=== PATIENT | male | born 1985 | race Caucasian/White ===

== ENCOUNTER 2017-01-14 02:48 | Inpatient (IN) | payer MEDICAID, OTHER ==
[2017-01-14] VITALS (7 sets, daily range): BP systolic 111–127; BP diastolic 67–80; PULSE 73–104; RESP 17–18; TEMP 97.3–100.9; O2SAT 94–99
[~2017-01-14] VITALS: Ht 175.3 cm; Wt 64.0 kg
[~2017-01-14 02:48] MED LIST: BACT800T5 PO; CLIN1CAP6 PO
[2017-01-14] MEDS ORDERED: ceFAZolin 2 GM PREMIX 50 ML IV ONE (03:00)
[2017-01-14 03:17] LABS: AUTOMATED NEUTROPHIL # 11.3 TH/MM3 (1.8-7.7); BASOPHIL # 0.1 TH/MM3 (0-0.2); BASOPHIL % 0.5 % (0.0-2.0); EOSINOPHIL # 0.3 TH/MM3 (0-0.4); EOSINOPHIL % 1.8 % (0.0-4.0); HEMATOCRIT 40.1 % (39.0-51.0); HEMO FLAGS DIFF FINAL; LYMPH % 11.4 % (9.0-44.0); LYMPHOCYTE # 1.7 TH/MM3 (1.0-4.8); MEAN CELL VOLUME 92.5 FL (80.0-100.0); MEAN CORPUSCULAR HGB CONC 34.6 % (32.0-36.0); MONO % 9.9 % (0.0-8.0); NEUT % 76.4 % (16.0-70.0); PLATELET COUNT 186 TH/MM3 (150-450); RED BLOOD COUNT 4.33 MIL/MM3 (4.50-5.90); RED CELL DISTRIBUTION WIDTH 13.2 % (11.6-17.2); WHITE BLOOD COUNT 14.9 TH/MM3 (4.0-11.0)
--- NOTE | 2017-01-14 03:20 | PD ---
HPI Chief Complaint: Injury Time Seen by Provider: 03:10 Travel History International Travel<30 days: No Contact w/Intl Traveler<30days: No Traveled to known affect area: No History of Present Illness HPI 31-year-old myjdv-eirc-mkuoewxv white male presents to emergency department for evaluation of a pneumatic paint injection injury to the tip of the left index finger. This occurred sometime around 6:00 last evening. He states that he felt he had squeezed the pain out of the tip of this finger. He states that he washed the finger with peroxide. He woke up this morning sometime after 2 AM with severe pain in the left index finger along with swelling. He notes some decreased sensation in the distal phalanx. He has not had a tetanus shot over 5 years. He last ate around 6:00 last evening. No other injuries. [facility] Past Medical History Narrative Medical History of substance abuse, seizures (patient has not had a seizure since stopping drugs), right knee MRSA, scoliosis, colon polyps Arthritis: Yes (IN HANDS FROM OLD FRACTURE) Cardiovascular Problems: No Diabetes: No Diminished Hearing: No Gastrointestinal Disorders: Yes (POLYPS) GERD: Yes Headaches: Yes Implanted Vascular Access Dvce: No Musculoskeletal: Yes (SCOLIOSIS) Neurologic: Yes Migraines: Yes Seizures: Yes Ulcer: Yes Tetanus Vaccination: > 5 Years Past Surgical History Narrative Surgical Endoscopy with removal of colon polyp, right knee MRSA Neurologic Surgery: No Other Surgery: Yes (ENDOSCOPY WITH BIOPSY) Social History Alcohol Use: No Tobacco Use: Yes (1 PPD FOR 5 YEARS) Substance Use: No Allergies-Medications (Allergen,Severity, Reaction): Coded Allergies: No Known Allergies (Verified , 01/14/17) Reported Meds & Prescriptions Reported Meds & Active Scripts Active No Active Prescriptions or Reported Medications Review of Systems Except as stated in HPI: all other systems reviewed are Neg General / Constitutional: No: Fever, Chills Eyes: No: Diploplia, Blurred Vision HENT: No: Sore Throat, Neck Pain Cardiovascular: No: Chest Pain or Discomfort, Palpitations Respiratory: No: Cough, Shortness of Breath Gastrointestinal: No: Nausea, Vomiting Genitourinary: No: Urgency, Hematuria Musculoskeletal: Positive: Arthralgias, Limited ROM, Cramping, Edema, Pain, No : Myalgias Skin: No Rash, No Itching Neurologic: No: Weakness, Dizziness Psychiatric: No: Anxiety, Depression Endocrine: No: Heat Intolerance, Cold Intolerance Physical Exam Narrative GENERAL: Well-developed, well-nourished in no apparent distress. Nontoxic appearing. HEAD: Normocephalic, atraumatic. EYES: Pupils equal round and reactive. Extraocular motions intact. No scleral icterus. No injection or drainage. ENT: Nose clear. Throat without erythema, tonsillar hypertrophy or exudate. Uvula midline. Airway patent. NECK: Trachea midline. Supple, nontender, moves head freely. No central bony tenderness or spasm. CARDIOVASCULAR: Regular rate and rhythm without murmurs, gallops, or rubs. RESPIRATORY: Clear to auscultation. Breath sounds equal bilaterally. No wheezes , rales, or rhonchi. GASTROINTESTINAL: Abdomen soft, non-tender, nondistended. No hepato-splenomegaly , or palpable masses. No guarding. EXTREMITIES: No clubbing, cyanosis. Examination of the right hand reveals swelling of the left index finger. He has a injection site at the distal volar pad. He has decreased gross sensation to the distal phalanx. He has full extension but slightly limited flexion due to pain. He has pain on the distal phalanx down into the volar palm. Patient has intact Refill. No warmth. Minimal erythema. BACK: Nontender without deformity. No flank tenderness. NEUROLOGICAL: Awake, alert and oriented x 3 .Cranial nerves grossly intact. Motor and sensory grossly within normal limits. Normal speech. Data Data Last Documented VS Vital Signs Date Time Temp Pulse Resp B/P Pulse Ox O2 Delivery O2 Flow Rate FiO2 01/14/17 02:50 98.1 104 18 127/80 98 Orders Complete Blood Count With Diff (01/14/17 02:59) Basic Metabolic Panel (Bmp) (01/14/17 02:59) Prothrombin Time / Inr (Pt) (01/14/17 02:59) Act Partial Throm Time (Ptt) (01/14/17 02:59) Cefazolin 2 Gm Premix (Ancef 2 Gm Premix (01/14/17 03:00) Hand, Complete ([id number]) (01/14/17 02:59) Tetanus/Diphtheria Tox Adult (Tetanus/Di (01/14/17 03:45) Labs Laboratory Tests Test 01/14/17 03:05 White Blood Count 14.9 TH/MM3 Red Blood Count 4.33 MIL/MM3 Hemoglobin 13.8 GM/DL Hematocrit 40.1 % Mean Corpuscular Volume 92.5 FL Mean Corpuscular Hemoglobin 32.0 PG Mean Corpuscular Hemoglobin 34.6 % Concent Red Cell Distribution Width 13.2 % Platelet Count 186 TH/MM3 Mean Platelet Volume 9.3 FL Neutrophils (%) (Auto) 76.4 % Lymphocytes (%) (Auto) 11.4 % Monocytes (%) (Auto) 9.9 % Eosinophils (%) (Auto) 1.8 % Basophils (%) (Auto) 0.5 % Neutrophils # (Auto) 11.3 TH/MM3 Lymphocytes # (Auto) 1.7 TH/MM3 Monocytes # (Auto) 1.5 TH/MM3 Eosinophils # (Auto) 0.3 TH/MM3 Basophils # (Auto) 0.1 TH/MM3 CBC Comment DIFF FINAL Differential Comment Prothrombin Time 11.6 SEC Prothromb Time International 1.0 RATIO Ratio Activated Partial 29.6 SEC Thromboplast Time Sodium Level 140 MEQ/L Potassium Level 4.1 MEQ/L Chloride Level 105 MEQ/L Carbon Dioxide Level 27.1 MEQ/L Anion Gap 8 MEQ/L Blood Urea Nitrogen 21 MG/DL Creatinine 1.19 MG/DL Estimat Glomerular Filtration 70 ML/MIN Rate Random Glucose 110 MG/DL Calcium Level 8.8 MG/DL [facility] Medical Decision Making Medical Screen Exam Complete: Yes Emergency Medical Condition: Yes Medical Record Reviewed: Yes Interpretation(s) Last 24 hours Impressions Hand X-Ray 01/14/17 0259 Signed Impressions: Service Date/Time: Saturday, January 14, 2017 03:20 - CONCLUSION: Radiopaque density in the volar tissues overlying the distal phalanx of the second ray characteristic of the reported history of a soft tissue pressure injection. Antwon Marshall MD CBC & BMP Diagram 01/14/17 03:05 Differential Diagnosis Differential diagnosis: Flexor synovitis, cellulitis, abscess, pneumatic paint injection injury Narrative Course The patient is made aware of the significant injury he has sustained. Dr. Raymond the hand surgeon was called immediately. He is coming in directly to evaluate the patient and taken to the operating room. IV access is obtained. Routine laboratory sent to the lab. X-ray of the hand. 2 g Ancef IV, tetanus immunization. Diagnosis Primary Impression: pneumatic paint injury left index finger Admitting Information Admitting Physician Requests: Admit Scripts No Active Prescriptions or Reported Meds Condition: Frank López Jan 14, 2017 03:20
[2017-01-14 03:25] LABS: APTT (PATIENT) 29.6 SEC (24.3-30.1); PROTHROMBIN TIME - PATIENT 11.6 SEC (9.8-11.6)
--- NOTE | 2017-01-14 03:29 | PD ---
Data Data Last Documented VS Vital Signs Date Time Temp Pulse Resp B/P Pulse Ox O2 Delivery O2 Flow Rate FiO2 01/14/17 02:50 98.1 104 18 127/80 98 Orders Complete Blood Count With Diff (01/14/17 02:59) Basic Metabolic Panel (Bmp) (01/14/17 02:59) Prothrombin Time / Inr (Pt) (01/14/17 02:59) Act Partial Throm Time (Ptt) (01/14/17 02:59) Cefazolin 2 Gm Premix (Ancef 2 Gm Premix (01/14/17 03:00) Hand, Complete ([id number]) (01/14/17 02:59) Labs Laboratory Tests Test 01/14/17 03:05 White Blood Count 14.9 TH/MM3 Red Blood Count 4.33 MIL/MM3 Hemoglobin 13.8 GM/DL Hematocrit 40.1 % Mean Corpuscular Volume 92.5 FL Mean Corpuscular Hemoglobin 32.0 PG Mean Corpuscular Hemoglobin 34.6 % Concent Red Cell Distribution Width 13.2 % Platelet Count 186 TH/MM3 Mean Platelet Volume 9.3 FL Neutrophils (%) (Auto) 76.4 % Lymphocytes (%) (Auto) 11.4 % Monocytes (%) (Auto) 9.9 % Eosinophils (%) (Auto) 1.8 % Basophils (%) (Auto) 0.5 % Neutrophils # (Auto) 11.3 TH/MM3 Lymphocytes # (Auto) 1.7 TH/MM3 Monocytes # (Auto) 1.5 TH/MM3 Eosinophils # (Auto) 0.3 TH/MM3 Basophils # (Auto) 0.1 TH/MM3 CBC Comment DIFF FINAL Differential Comment Prothrombin Time 11.6 SEC Prothromb Time International 1.0 RATIO Ratio Activated Partial 29.6 SEC Thromboplast Time MDM Supervised Visit with SANJANA: Yes Narrative Course Patient seen and examined by me in addition to Keven Crook PAC. Patient has fairly swollen first digital left hand. This injury was from a high-pressure injection of paint. Pinpoint wound. Concern is for necrotic substance along the fascia. Hand surgery will consult and recommendations made for OR and debridement. Diagnosis Primary Impression: pneumatic paint injury left index finger Scripts No Active Prescriptions or Reported Meds Condition: Stable Gurwinder Elizondo MD Jan 14, 2017 03:29
[2017-01-14 03:30] LABS: BICARBONATE 27.1 MEQ/L (21.0-32.0); POTASSIUM 4.1 MEQ/L (3.5-5.1)
--- NOTE | 2017-01-14 03:42 | RADRPT ---
EXAM DATE/TIME: 01/14/2017 03:20 [place] COMPARISON: No previous studies available for comparison. INDICATIONS : Pressure injected paint to the distal aspect of the second digit. MEDICAL HISTORY : None. SURGICAL HISTORY : None. ENCOUNTER: Initial ACUITY: 1 day PAIN SCORE: 10/10 LOCATION: Left finger FINDINGS: Three view examination of the left hand demonstrates radiopaque debris in the volar soft tissues over lying the distal phalanx of the pointer finger characteristic of a reported history of pressure injec tion of pain. Osseous structures are otherwise intact. CONCLUSION: Radiopaque density in the volar tissues overlying the distal phalanx of the second ray character istic of the reported history of a soft tissue pressure injection. Antwon Marshall MD on January 14, 2017 at 3:37 Board Certified Radiologist. This report was verified electronically.
[2017-01-14] MEDS ORDERED: TETANUS/DIPHTHERIA TOXOID ADULT 0.5 ML VIAL IM ONE (03:45)
[2017-01-14] MEDS ORDERED: MORPHINE SULFATE 8 MG/ML INJ IV PUSH ONE (04:45)
[2017-01-14] MEDS ORDERED: ONDANSETRON HCL 4 MG/2 ML VIAL IV PUSH ONE ×2 (04:45→09:57)
[2017-01-14] MEDS ORDERED: BUPIVACAINE HCL PF 0.5% 30 ML VIAL ONE (06:01)
[2017-01-14] MEDS ORDERED: LIDOCAINE HCL 2% 50 ML VIAL ONE (06:02)
[2017-01-14] MEDS ORDERED: ACETAMINOPHEN/HYDROcodone 325 MG/5 MG TAB PO PRN (06:15)
[2017-01-14] MEDS ORDERED: ONDANSETRON HCL 4 MG/2 ML VIAL IVP PRN (06:15)
[2017-01-14] MEDS ORDERED: SODIUM CHLORIDE 0.9% FLUSH 5 ML FLUSH FLUSH PRN (06:15)
[2017-01-14] MEDS ORDERED: ACETAMINOPHEN 325 MG TAB PO PRN (06:15)
[2017-01-14] MEDS ORDERED: BISACODYL 10 MG SUPP PR PRN (06:15)
--- NOTE | 2017-01-14 06:24 | MB ---
cc: KACY BENITO III, M.D. DATE OF CONSULTATION 01/14/2017 HISTORY The patient is a 31-year-old male who came into the emergency room two hours ago after being seen for a high pressure injection injury of Latex paint into the left index fingertip. This happened approximately 12 hours at home. He said he awoke at 2:30 this morning and his fingers was throbbing and painful and swollen, came to emergency room. He thought he had squeezed all of the pain out of his fingertips. He says he cannot even feel the tip of the left index finger. The last he ate was at 6 o'clock last night. PAST MEDICAL HISTORY 1. Seizure disorder. 2. The patient has a history of substance abuse but stopped 10 years ago. 3. Had right knee MRSA. 4. Scoliosis. 5. Colon polyps. 6. Arthritis in his hands from an old fracture. PAST SURGICAL HISTORY Right knee surgery for MRSA, infectious. SOCIAL HISTORY He smokes one-pack a day for five years. ALLERGIES No known drug allergies. MEDICATIONS No medications. REVIEW OF SYSTEMS Patient is not complaining of any night sweats, fevers or chills. He does not complain of any sore throat or neck pain. He does not complain of any chest pain or palpitations or discomfort. He does not complain of any cough, wheezing or shortness of breath. He is not complaining of any nausea, vomiting or diarrhea. He id not complaining of any urgency, burning, frequency or burning with urination. He is not complaining of any myalgias. He is complaining of any skin rashes or itching. He is not complaining of any weakness or dizziness. He is not complaining of any anxiety, depression or suicidal ideations. He is not complaining of any night sweats, fevers or chills. IMAGING STUDIES X-ray examination of the left index finger was performed and reviewed and this does not reveal any fractures, foreign bodies or dislocations but reveals radiopaque density in the volar tissues overlying the distal phalanx of the second ray with characteristics of the reported history and a soft tissue pressure injection. FAMILY HISTORY Noncontributory to this injury and hospitalization. PHYSICAL EXAMINATION GENERAL: He is well-developed, well-nourished, in no apparent distress. VITAL SIGNS: Temperature is 98.1, heart rate 73, respiratory rate 20, blood pressure 117/71. EXAMINATION OF THE LEFT UPPER EXTREMITY: Full active range of motion throughout with the exception of the left index finger which is edematous and tense at the tip with decreased capillary refill in the tip of the fingers. There is a small point of injury. The finger is swollen to the PIP joint and down to the MP joint as well. His hand and the proximal finger are soft. There is no erythema anywhere in the palm. NEUROLOGIC: He is awake, alert and oriented x 3. There are no other noted abnormalities. IMPRESSION Left index finger high pressure injection injury with latex paint. PLAN The plan is to go emergently to the operating room for exploration of the finger. The patient knows that this may require more than one operation. He knows it may require stay in the hospital and he knows he may lose part of the finger but this is what we need to do and he agrees and wishes to proceed. MD JOSE CRUZ Sher III/SONALI /5:50 AM /6:09 AM
[2017-01-14] MEDS ORDERED: NEOMYCIN/POLYMYXIN 1 ML G.U. IRRIGANT IR ONE (06:43)
--- NOTE | 2017-01-14 07:31 | HHI.PR ---
Immediate Post Op Note Procedure Date: Jan 14, 2017 Pre Op Diagnosis: (1) High-pressure injection injury of finger of left hand Post Op Diagnosis: Surgeon: Ajith Raymond III Factory Assembler(s): sf Procedure: incision an debridement of left index finger, complicated Anesthesia: General, Local Drains: None Tourniquet time (min at mmHg) 6/200mmHg Patient to: PACU Patient Condition: Good Ajith Raymond III, MD Jan 14, 2017 07:31
--- NOTE | 2017-01-14 08:04 | HHI.HP ---
[facility] [place] [facility] Primary Care Physician No Primary Care Physician Admission Diagnosis pneumatic paint injury left index finger Diagnoses: Chief Complaint: Injury to left index finger with latex paint sprayer Travel History International Travel<30 Days: No Contact w/Intl Traveler <30 Da: No Traveled to Known Affected Are: No History of Present Illness This is a 31-year-old [id number]-[id number] male patient with a past medical history which includes seizure disorder secondary to substance abuse last seizure 10 years ago also last substance abuse 10 years ago, MRSA infection of the right knee, scoliosis, colon polyps. Patient evaluated in postanesthesia care unit groggy from anesthesia therefore information gathered from patient as well as prior computerized charting. Patient presented to emergency department for evaluation of a pneumatic latex paint injection injury to the tip of the left index finger. This occurred sometime around 6:00 pm 01/13/2017. He states that he felt he had squeezed the pain out of the tip of this finger. He states that he washed the finger with peroxide. He woke up this morning sometime after 2 AM with severe pain in the left index finger along with swelling. Patient reports feeling well at this time denies pain, groggy post anesthesia. Patient denies shortness of breath chest pain nausea vomiting diarrhea constipation fevers or chills. Review of Systems Except as stated in HPI: all other systems reviewed are Neg Past Family Social History Past Medical History seizure disorder secondary to substance abuse last seizure 10 years ago also last substance abuse 10 years ago, MRSA infection of the right knee, scoliosis, colon polyps. Past Surgical History Excision of MRSA right knee, colon polyps removed Reported Medications Denies taking home medications on a daily basis Allergies: Coded Allergies: No Known Allergies (Verified , 01/14/17) Active Ordered Medications Current Medications Medications (Trade) Dose Ordered Sig/Mine Route Start Time Stop Time Status Last Admin (NS Flush) 2 ml UNSCH PRN FLUSH 01/14/17 06:15 (NS Flush) 2 ml BID FLUSH 01/14/17 09:00 (Zofran Inj) 4 mg Q6H PRN IVP 01/14/17 06:15 (Dulcolax Supp) 10 mg DAILY PRN DE 01/14/17 06:15 (Tylenol) 650 mg Q6H PRN PO 01/14/17 06:15 (Newfane 5-325 Mg) 1 tab Q4H PRN PO 01/14/17 06:15 (Morphine Inj) 2 mg Q3H PRN IV 01/14/17 06:15 Family History Mother has diabetes mellitus Social History Tobacco use reports pack cigarettes per day for the past 10-15 years Denies EtOH use and denies illicit drug use at this time-patient reports history of EtOH abuse and cocaine abuse last used 10 years ago Physical Exam Vital Signs Vital Signs Date Time Temp Pulse Resp B/P Pulse Ox O2 Delivery O2 Flow Rate FiO2 01/14/17 05:13 20 01/14/17 04:42 73 17 117/71 97 Room Air 01/14/17 02:50 98.1 104 18 127/80 98 Physical Exam GENERAL: This is a well-nourished, well-developed patient, groggy post anesthesia in no apparent distress. SKIN: Left forearm and and digits postop dressing dry and intact HEAD: Atraumatic. Normocephalic. No temporal or scalp tenderness. EYES: Extraocular motions intact. No scleral icterus. No injection or drainage. CARDIOVASCULAR: Regular rate and rhythm without murmurs, gallops, or rubs. RESPIRATORY: Clear to auscultation. Breath sounds equal bilaterally. No wheezes , rales, or rhonchi. GASTROINTESTINAL: Abdomen soft, non-tender, nondistended. No hepato-splenomegaly , or palpable masses. No guarding. MUSCULOSKELETAL: Extremities without clubbing, cyanosis, or edema. No joint tenderness, effusion, or edema noted. No calf tenderness. Negative Homans sign bilaterally. NEUROLOGICAL: Awake and alert. Motor grossly within normal limits, able to wiggle fingers left hand. Five out of 5 muscle strength in all muscle groups. Normal speech. Laboratory Laboratory Tests Test 01/14/17 03:05 White Blood Count 14.9 Red Blood Count 4.33 Hemoglobin 13.8 Hematocrit 40.1 Mean Corpuscular Volume 92.5 Mean Corpuscular Hemoglobin 32.0 Mean Corpuscular Hemoglobin 34.6 Concent Red Cell Distribution Width 13.2 Platelet Count 186 Mean Platelet Volume 9.3 Neutrophils (%) (Auto) 76.4 Lymphocytes (%) (Auto) 11.4 Monocytes (%) (Auto) 9.9 Eosinophils (%) (Auto) 1.8 Basophils (%) (Auto) 0.5 Neutrophils # (Auto) 11.3 Lymphocytes # (Auto) 1.7 Monocytes # (Auto) 1.5 Eosinophils # (Auto) 0.3 Basophils # (Auto) 0.1 CBC Comment DIFF FINAL Differential Comment Prothrombin Time 11.6 Prothromb Time International 1.0 Ratio Activated Partial 29.6 Thromboplast Time Sodium Level 140 Potassium Level 4.1 Chloride Level 105 Carbon Dioxide Level 27.1 Anion Gap 8 Blood Urea Nitrogen 21 Creatinine 1.19 Estimat Glomerular Filtration 70 Rate Random Glucose 110 Calcium Level 8.8 Result Diagram: 01/14/1730401/14/17304 Imaging Last Impressions Hand X-Ray 01/14/17 0259 Signed Impressions: Service Date/Time: Saturday, January 14, 2017 03:20 - CONCLUSION: Radiopaque density in the volar tissues overlying the distal phalanx of the second ray characteristic of the reported history of a soft tissue pressure injection. Antwon Marshall MD Assessment and Plan Assessment and Plan This is a 31-year-old lpzmc-[id number] male patient with a past medical history which includes seizure disorder secondary to substance abuse last seizure 10 years ago also last substance abuse 10 years ago, MRSA infection of the right knee, scoliosis, colon polyps. Patient evaluated in postanesthesia care unit groggy from anesthesia therefore information gathered from patient as well as prior computerized charting. Patient presented to emergency department for evaluation of a pneumatic latex paint injection injury to the tip of the left index finger. This occurred sometime around 6:00 pm 01/13/2017. High-pressure injection injury with latex paint to the left index finger Status post I&D left index finger 01/14/[address] Raymond Hand surgeries ordered Ancef 1 g IV every 6 Wound culture pending Postoperative dressing dry and intact dressing changes per hand surgery Pain management with PO Newfane and IV Morphine CBC and BMP in AM Tobacco abuse patient counseled will hold off on patch at this time DVT prophylaxis with SCDs Case discussed with patient and Dr. Frazier patient seen in the room agree with management following with Hand direct marketing specialist. Code Status Full Code Discussed Condition With Patient in the room Physician Certification 2 Midnight Certification Type: Admission for Inpatient Services Order for Inpatient Services The services are ordered in accordance with Medicare regulations or non- Medicare payer requirements, as applicable. In the case of services not specified as inpatient-only, they are appropriately provided as inpatient services in accordance with the 2-midnight benchmark. Estimated LOS (days): 3 days is the estimated time the patient will need to remain in the hospital, assuming treatment plan goals are met and no additional complications. Post-Hospital Plan: Home Ashley Barakat Jan 14, 2017 08:04 Donald Frazier MD Jan 14, 2017 12:34
[2017-01-14] MEDS ORDERED: DO NOT ADM ANY ANTICOAGULANT DRUGS XX PRN (08:30)
--- NOTE | 2017-01-14 09:03 | MP ---
cc: AJITH RAYMOND III, M.D. DATE OF SURGERY 01/14/2017 PREOPERATIVE DIAGNOSIS Left index finger high-pressure injection injury. PROCEDURE Incision and debridement left index finger. SURGEON Ajith Raymond III, MD PROCEDURE The patient was brought to the operating room and placed supine on the operating room table. After the correct site and side of the surgery were verified by members of each team in the room multiple times including the patient and myself and after adequate preoperative markings and preoperative written consent were verified by everyone and after adequate preoperative time-out was performed to everyone's satisfaction, after adequate general anesthesia had been achieved, the left upper extremity was prepped and draped in the traditional sterile surgical fashion. A 50/50 mixture of 2% plain lidocaine and 0.5% plain Marcaine was infiltrated in palm at the metacarpal level to achieve left index finger digital block. The limb was elevated and pressure was held on the brachial artery for a minute and the axillary tourniquet was inflated to 200 mmHg for a total of 6 minutes. The hand was held gently in a lead hand. Ronda style incisions were used in the volar aspect of the finger and made from the tip of finger down to the proximal phalanx on the volar aspect that the extent of the latex paint was identified. The distal phalanx finger pulp was almost completely replaced with latex paint and this was debrided. The radial neurovascular bundle was unaffected but the ulnar-sided neurovascular bundle had latex paint tracked down along it to the proximal phalanx. The 80-90% of the latex paint was debrided and excised sharply. The tourniquet was then released during continued debridement and there was no evidence of any injury to the neurovascular bundle. The remaining latex paint that could not be excised was part of absentee-shawnee tissue that would cause too much damage to further excise it. The flexor tendon sheath did not appear to be entered in the injury and was intact and did not appear to be compromised in any way. Thorough irrigation with a liter's worth of saline was performed. A culture was obtained after the initial incision, prior to debridement. This was some of the turbid fluid that was encountered and passed off the field as a specimen. The skin edges were loosely reapproximated using interrupted 4-0 chromic sutures. Of note the fingertip did have some blood return to it and did appear to have a blood supply and appeared viable at the completion of the case. Hemostasis was present. The hand and arm were thoroughly cleansed and dried. Adaptic was applied on top of the wound and a bulky soft dressing was applied around the whole hand. The patient was awakened from anesthesia and transported to the Post-Anesthesia Care Unit awake and in stable condition at the end of the case. The needle and instrument counts were correct at the end of the case as reported by the nurses in the room. Ajith Raymond III, MD LCB/SSB /7:17 AM /8:51 AM
[2017-01-14] MEDS ORDERED: ONDANSETRON HCL 4 MG/2 ML VIAL IV PUSH PRN (09:15)
[2017-01-14] MEDS ORDERED: PHENYLEPH/NS 1000 MCG/10 ML SYR IV ONE (09:57)
[2017-01-14] MEDS ORDERED: PROPOFOL 200 MG/20 ML AMP IV ONE (09:57)
[2017-01-14] MEDS ORDERED: LACTATED RINGER'S 1000 ML INJ 1,000 ML IV ONE (09:58)
[2017-01-14] MEDS ORDERED: ceFAZolin 1,000 MG/NS 100 ML IV SCH ×4 (10:00)
[2017-01-14] MEDS: SODIUM CHLORIDE 0.9% FLUSH 5 ML FLUSH FLUSH SCH ×2 (12:45→21:55)
[2017-01-14] MEDS: ACETAMINOPHEN/HYDROcodone 325 MG/7.5 MG TAB PO PRN (12:46)
[2017-01-14] MEDS: MORPHINE SULFATE 4 MG/ML INJ IV PRN ×3 (15:33→21:54)
[2017-01-14] MEDS: ceFAZolin 1,000 MG/NS 100 ML IV SCH ×2 (20:55)
[2017-01-14] MEDS ORDERED: ZOLPIDEM TARTRATE 10 MG TAB PO PRN (21:00)
[2017-01-15] VITALS (8 sets, daily range): BP systolic 95–134; BP diastolic 59–83; PULSE 59–86; RESP 15–19; TEMP 96.8–99.6; O2SAT 95–99
[2017-01-15] MEDS: MORPHINE SULFATE 4 MG/ML INJ IV PRN ×3 (02:41→21:49)
[2017-01-15] MEDS: ceFAZolin 1,000 MG/NS 100 ML IV SCH ×8 (02:42→21:27)
[2017-01-15 08:51] LABS: AUTOMATED NEUTROPHIL # 8.6 TH/MM3 (1.8-7.7); BASOPHIL # 0.1 TH/MM3 (0-0.2); BASOPHIL % 0.6 % (0.0-2.0); EOSINOPHIL # 0.3 TH/MM3 (0-0.4); EOSINOPHIL % 2.9 % (0.0-4.0); HEMATOCRIT 39.4 % (39.0-51.0); HEMO FLAGS DIFF FINAL; LYMPH % 13.7 % (9.0-44.0); LYMPHOCYTE # 1.6 TH/MM3 (1.0-4.8); MEAN CELL VOLUME 93.6 FL (80.0-100.0); MEAN CORPUSCULAR HEMOGLOBIN 31.7 PG (27.0-34.0); MEAN CORPUSCULAR HGB CONC 33.9 % (32.0-36.0); MONO % 9.6 % (0.0-8.0); NEUT % 73.2 % (16.0-70.0); PLATELET COUNT 155 TH/MM3 (150-450); RED BLOOD COUNT 4.21 MIL/MM3 (4.50-5.90); RED CELL DISTRIBUTION WIDTH 13.2 % (11.6-17.2); WHITE BLOOD COUNT 11.8 TH/MM3 (4.0-11.0)
[2017-01-15 09:10] LABS: ALKALINE PHOSPHATASE 58 U/L (45-117); ALT (GPT) 13 U/L (12-78); ANION GAP 7 MEQ/L (5-15); AST (GOT) 23 U/L (15-37); BICARBONATE 28.3 MEQ/L (21.0-32.0); BLOOD UREA NITROGEN 12 MG/DL (7-18); CHLORIDE 103 MEQ/L (98-107); GLOMERULAR FILTRATION RATE 65 ML/MIN (>89); POTASSIUM 4.2 MEQ/L (3.5-5.1); SODIUM (NA) 138 MEQ/L (136-145); TOTAL BILIRUBIN ADULT 0.8 MG/DL (0.2-1.0)
[2017-01-15] MEDS: ACETAMINOPHEN/HYDROcodone 325 MG/7.5 MG TAB PO PRN ×2 (10:04→16:29)
[2017-01-15] MEDS: SODIUM CHLORIDE 0.9% FLUSH 5 ML FLUSH FLUSH SCH ×2 (10:11→21:28)
--- NOTE | 2017-01-15 12:35 | HHI.PR ---
Subjective Remarks he states he can feel his index finger tip again; pain is under control Objective Vital Signs Date Time Temp Pulse Resp B/P Pulse Ox O2 Delivery O2 Flow Rate FiO2 01/15/17 12:00 98.1 82 18 114/75 96 01/15/17 09:35 95 21 01/15/17 08:00 97.2 72 19 130/74 97 01/15/17 04:00 96.8 59 15 95/59 99 01/15/17 00:00 98.6 65 17 121/71 97 01/14/17 22:31 94 Nasal Cannula 2.00 01/14/17 20:00 100.4 80 18 120/67 96 01/14/17 17:00 99.7 01/14/17 16:00 100.9 80 18 111/67 99 01/14/17 13:44 16 I/O 01/14/17 01/14/17 01/14/17 01/15/17 01/15/17 01/15/17 07:00 15:00 23:00 07:00 15:00 23:00 Intake Total 1000 ml 1113 ml 350 ml Balance 1000 ml 1113 ml 350 ml Intake Oral 1010 ml 350 ml IV Total 103 ml Other 1000 ml # Voids 6 4 # Bowel Movements 0 Result Diagram: 01/15/17 0800 01/15/17 0800 Other Results micro prelim looks like MRSA Objective Remarks left IF wound is clean, soft; tip is viable with CR=2 seconds; able to flex/ extend; no hematoma, no bleeding Assessment and Plan Problem List: (1) High-pressure injection injury of finger of left hand Status: Acute Plan: start Vanco dressing changed; start moving finger regularly ok to shower wash and dry hands routinely Ajith Raymond III, MD Jan 15, 2017 12:35
--- NOTE | 2017-01-15 13:24 | HHI.PR ---
Subjective Remarks This is a pleasant 31 y/o male with has Seizure disorder secondary to Substance abuse, 10 years ago, MRSA infection of the right knee, the patient had Pneumatic latex paint injection injury to his Rip of his Right index finger, he developed edema erythema and came to ER for evaluation status post I and D performed by Hand office services specialist, today has wound culture with Staphylococcus will follow for MRSA. Objective Vital Signs Date Time Temp Pulse Resp B/P Pulse Ox O2 Delivery O2 Flow Rate FiO2 01/15/17 12:00 98.1 82 18 114/75 96 01/15/17 09:35 95 21 01/15/17 08:00 97.2 72 19 130/74 97 01/15/17 04:00 96.8 59 15 95/59 99 01/15/17 00:00 98.6 65 17 121/71 97 01/14/17 22:31 94 Nasal Cannula 2.00 01/14/17 20:00 100.4 80 18 120/67 96 01/14/17 17:00 99.7 01/14/17 16:00 100.9 80 18 111/67 99 01/14/17 13:44 16 I/O 01/14/17 01/14/17 01/14/17 01/15/17 01/15/17 01/15/17 07:00 15:00 23:00 07:00 15:00 23:00 Intake Total 1000 ml 1113 ml 350 ml Balance 1000 ml 1113 ml 350 ml Intake Oral 1010 ml 350 ml IV Total 103 ml Other 1000 ml # Voids 6 4 # Bowel Movements 0 Result Diagram: 01/15/17 0800 01/15/17 0800 Imaging Last Impressions Hand X-Ray 01/14/17 0259 Signed Impressions: Service Date/Time: Saturday, January 14, 2017 03:20 - CONCLUSION: Radiopaque density in the volar tissues overlying the distal phalanx of the second ray characteristic of the reported history of a soft tissue pressure injection. Antwon Marshall MD Procedures Status post I and D of the Right index finger. Other Results Laboratory Tests Test 01/14/17 01/15/17 03:05 08:00 Prothrombin Time 11.6 SEC Prothromb Time International 1.0 RATIO Ratio Activated Partial 29.6 SEC Thromboplast Time White Blood Count 11.8 TH/MM3 Red Blood Count 4.21 MIL/MM3 Hemoglobin 13.4 GM/DL Hematocrit 39.4 % Mean Corpuscular Volume 93.6 FL Mean Corpuscular Hemoglobin 31.7 PG Mean Corpuscular Hemoglobin 33.9 % Concent Red Cell Distribution Width 13.2 % Platelet Count 155 TH/MM3 Mean Platelet Volume 10.0 FL Neutrophils (%) (Auto) 73.2 % Lymphocytes (%) (Auto) 13.7 % Monocytes (%) (Auto) 9.6 % Eosinophils (%) (Auto) 2.9 % Basophils (%) (Auto) 0.6 % Neutrophils # (Auto) 8.6 TH/MM3 Lymphocytes # (Auto) 1.6 TH/MM3 Monocytes # (Auto) 1.1 TH/MM3 Eosinophils # (Auto) 0.3 TH/MM3 Basophils # (Auto) 0.1 TH/MM3 CBC Comment DIFF FINAL Differential Comment Sodium Level 138 MEQ/L Potassium Level 4.2 MEQ/L Chloride Level 103 MEQ/L Carbon Dioxide Level 28.3 MEQ/L Anion Gap 7 MEQ/L Blood Urea Nitrogen 12 MG/DL Creatinine 1.27 MG/DL Estimat Glomerular Filtration 65 ML/MIN Rate Random Glucose 72 MG/DL Calcium Level 8.4 MG/DL Total Bilirubin 0.8 MG/DL Aspartate Amino Transf 23 U/L (AST/SGOT) Alanine Aminotransferase 13 U/L (ALT/SGPT) Alkaline Phosphatase 58 U/L Total Protein 7.0 GM/DL Albumin 3.7 GM/DL Objective Remarks GENERAL: This is a well-nourished, well-developed patient, groggy post anesthesia in no apparent distress. SKIN: Left forearm and and digits postop dressing dry and intact HEAD: Atraumatic. Normocephalic. No temporal or scalp tenderness. EYES: Extraocular motions intact. No scleral icterus. No injection or drainage. CARDIOVASCULAR: Regular rate and rhythm without murmurs, gallops, or rubs. RESPIRATORY: Clear to auscultation. Breath sounds equal bilaterally. No wheezes , rales, or rhonchi. GASTROINTESTINAL: Abdomen soft, non-tender, nondistended. No hepato-splenomegaly , or palpable masses. No guarding. MUSCULOSKELETAL: Right hand dressed. NEUROLOGICAL: Awake and alert. Motor grossly within normal limits. Medications and IVs Current Medications Medications (Trade) Dose Ordered Sig/Mine Route Start Time Stop Time Status Last Admin (NS Flush) 2 ml UNSCH PRN FLUSH 01/14/17 06:15 (NS Flush) 2 ml BID FLUSH 01/14/17 09:00 01/15/17 10:11 (Zofran Inj) 4 mg Q6H PRN IVP 01/14/17 06:15 (Dulcolax Supp) 10 mg DAILY PRN [place] 01/14/17 06:15 (Tylenol) 650 mg Q6H PRN PO 01/14/17 06:15 (Morphine Inj) 2 mg Q3H PRN IV 01/14/17 06:15 01/15/17 07:08 ([place] 7.5-325 Mg) 1 tab Q6H PRN PO 01/14/17 09:15 01/15/17 10:04 (Zofran Inj) 4 mg Q8H PRN IV PUSH 01/14/17 09:15 Zolpidem Tartrate 10 mg 10 mg HS PRN PO 01/14/17 21:00 Cefazolin Sodium 1000 mg/Sodium Chloride 100 ml @ 200 mls/hr Q6H IV 01/14/17 20:00 01/15/17 10:11 (Vancomycin Inj/ NS 250 ml Inj) 250 ml @ 250 mls/hr Q12H IV 01/15/17 13:00 A/P Assessment and Plan 1. High-pressure injection injury with latex paint to the left index finger Status post I&D left index finger 01/14/[address] Raymond as per Specialist started on Vancomycin for Staph aureus on wound care, probable MRSA. Wound culture pending Postoperative dressing dry and intact dressing changes per hand surgery Pain management with PO [place] and IV Morphine CBC and BMP in AM Tobacco abuse recommended to stop smoking DVT prophylaxis with SCDs Discussed with Patient and his in the room, The patient wants to go home. Discharge Planning Expected in 3 days. Donald Harkins MD Jan 15, 2017 13:24
[2017-01-15] MEDS ORDERED: Vancomycin Consult Pharmacy 1 EA OTHER SCH (13:30)
[2017-01-15] MEDS: VANCOMYCIN INJ 1,000 MG in SODIUM CHLOR 0.9% 250 ML INJ 250 ML IV SCH (13:38)
[2017-01-16] VITALS: BP 103/59; PULSE 100; RESP 17; TEMP 98; O2SAT 96
[2017-01-16] MEDS: ceFAZolin 1,000 MG/NS 100 ML IV SCH ×6 (01:23→14:00)
[2017-01-16] MEDS: VANCOMYCIN INJ 1,000 MG in SODIUM CHLOR 0.9% 250 ML INJ 250 ML IV SCH ×2 (01:23→13:23)
[2017-01-16 04:00] VITALS: BP 117/60; PULSE 64; RESP 16; TEMP 98.2; O2SAT 97
[2017-01-16] MEDS: ACETAMINOPHEN/HYDROcodone 325 MG/7.5 MG TAB PO PRN ×2 (06:37→13:21)
[2017-01-16 08:22] VITALS: BP 115/77; PULSE 70; RESP 16; TEMP 98.3; O2SAT 97
[2017-01-16] MEDS: SODIUM CHLORIDE 0.9% FLUSH 5 ML FLUSH FLUSH SCH (08:49)
--- NOTE | 2017-01-16 13:16 | HHI.PR ---
Subjective Remarks This is a pleasant 31 y/o male with has Seizure disorder secondary to Substance abuse, 10 years ago, MRSA infection of the right knee, the patient had Pneumatic latex paint injection injury to his Rip of his Right index finger, he developed edema erythema and came to ER for evaluation status post I and D performed by Hand offender employment specialist, Wound culture Staph Aureus, No MRSA so far. awaiting final by specialist for discharge. Objective Vital Signs Date Time Temp Pulse Resp B/P Pulse Ox O2 Delivery O2 Flow Rate FiO2 01/16/17 08:22 98.3 70 16 115/77 97 01/16/17 04:00 98.2 64 16 117/60 97 01/16/17 00:00 98.0 100 17 103/59 96 01/15/17 20:26 97 21 01/15/17 20:00 97.8 77 16 134/83 98 01/15/17 16:00 99.6 86 18 122/67 98 I/O 01/15/17 01/15/17 01/15/17 01/16/17 01/16/17 01/16/17 07:00 15:00 23:00 07:00 15:00 23:00 Intake Total 350 ml 1080 ml 360 ml Output Total 550 ml 1300 ml Balance 350 ml 530 ml -940 ml Intake Oral 350 ml 1080 ml 360 ml Output Urine Total 550 ml 1300 ml # Voids 4 3 # Bowel Movements 0 0 Result Diagram: 01/15/17 0800 01/15/17 0800 Imaging Last Impressions Hand X-Ray 01/14/17 0259 Signed Impressions: Service Date/Time: Saturday, January 14, 2017 03:20 - CONCLUSION: Radiopaque density in the volar tissues overlying the distal phalanx of the second ray characteristic of the reported history of a soft tissue pressure injection. Antwon Marshall MD Procedures Status post I and D of the Right index finger. Other Results Laboratory Tests Test 01/14/17 01/15/17 03:05 08:00 Prothrombin Time 11.6 SEC Prothromb Time International 1.0 RATIO Ratio Activated Partial 29.6 SEC Thromboplast Time White Blood Count 11.8 TH/MM3 Red Blood Count 4.21 MIL/MM3 Hemoglobin 13.4 GM/DL Hematocrit 39.4 % Mean Corpuscular Volume 93.6 FL Mean Corpuscular Hemoglobin 31.7 PG Mean Corpuscular Hemoglobin 33.9 % Concent Red Cell Distribution Width 13.2 % Platelet Count 155 TH/MM3 Mean Platelet Volume 10.0 FL Neutrophils (%) (Auto) 73.2 % Lymphocytes (%) (Auto) 13.7 % Monocytes (%) (Auto) 9.6 % Eosinophils (%) (Auto) 2.9 % Basophils (%) (Auto) 0.6 % Neutrophils # (Auto) 8.6 TH/MM3 Lymphocytes # (Auto) 1.6 TH/MM3 Monocytes # (Auto) 1.1 TH/MM3 Eosinophils # (Auto) 0.3 TH/MM3 Basophils # (Auto) 0.1 TH/MM3 CBC Comment DIFF FINAL Differential Comment Sodium Level 138 MEQ/L Potassium Level 4.2 MEQ/L Chloride Level 103 MEQ/L Carbon Dioxide Level 28.3 MEQ/L Anion Gap 7 MEQ/L Blood Urea Nitrogen 12 MG/DL Creatinine 1.27 MG/DL Estimat Glomerular Filtration 65 ML/MIN Rate Random Glucose 72 MG/DL Calcium Level 8.4 MG/DL Total Bilirubin 0.8 MG/DL Aspartate Amino Transf 23 U/L (AST/SGOT) Alanine Aminotransferase 13 U/L (ALT/SGPT) Alkaline Phosphatase 58 U/L Total Protein 7.0 GM/DL Albumin 3.7 GM/DL Objective Remarks GENERAL: This is a well-nourished, well-developed patient, groggy post anesthesia in no apparent distress. SKIN: Left forearm and and digits postop dressing dry and intact HEAD: Atraumatic. Normocephalic. No temporal or scalp tenderness. EYES: Extraocular motions intact. No scleral icterus. No injection or drainage. CARDIOVASCULAR: Regular rate and rhythm without murmurs, gallops, or rubs. RESPIRATORY: Clear to auscultation. Breath sounds equal bilaterally. No wheezes , rales, or rhonchi. GASTROINTESTINAL: Abdomen soft, non-tender, nondistended. No hepato-splenomegaly , or palpable masses. No guarding. MUSCULOSKELETAL: Right hand dressed. NEUROLOGICAL: Awake and alert. Motor grossly within normal limits. Medications and IVs Current Medications Medications (Trade) Dose Ordered Sig/Mine Route Start Time Stop Time Status Last Admin (NS Flush) 2 ml UNSCH PRN FLUSH 01/14/17 06:15 (NS Flush) 2 ml BID FLUSH 01/14/17 09:00 01/16/17 08:49 (Zofran Inj) 4 mg Q6H PRN IVP 01/14/17 06:15 (Dulcolax Supp) 10 mg DAILY PRN [place] 01/14/17 06:15 (Tylenol) 650 mg Q6H PRN PO 01/14/17 06:15 (Morphine Inj) 2 mg Q3H PRN IV 01/14/17 06:15 01/15/17 21:49 ([place] 7.5-325 Mg) 1 tab Q6H PRN PO 01/14/17 09:15 01/16/17 06:37 (Zofran Inj) 4 mg Q8H PRN IV PUSH 01/14/17 09:15 Zolpidem Tartrate 10 mg 10 mg HS PRN PO 01/14/17 21:00 Cefazolin Sodium 1000 mg/Sodium Chloride 100 ml @ 200 mls/hr Q6H IV 01/14/17 20:00 01/16/17 08:48 Vancomycin HCl 1000 mg/Sodium Chloride 250 ml @ 250 mls/hr Q12H IV 01/15/17 13:00 01/16/17 01:23 (Vancomycin Consult Pharmacy) 0 ml @ 0 mls/hr UNSCH OTHER 01/15/17 13:30 Miscellaneous Information SPECIFIC LAB TO BE DRAWN:VANCOMYCIN TROUGH DATE TO... ONCE ONCE XX 01/17/17 12:45 01/17/17 12:46 A/P Assessment and Plan 1. High-pressure injection injury with latex paint to the left index finger Status post I&D left index finger 01/14/[address] Raymond as per Specialist started on Vancomycin for Staph aureus on wound care, No MRSA so far. Postoperative dressing dry and intact dressing changes per hand surgery Pain management with PO [place] and IV Morphine Tobacco abuse recommended to stop smoking DVT prophylaxis with SCDs Discussed with Patient and his in the room, The patient wants to go home. Okay to Discharge from Medicine standpoint. Discharge Planning Okay to discharge from Medicine standpoint. Donald Harkins MD Jan 16, 2017 13:16
[2017-01-16] MEDS ORDERED: DOXY100C PO (14:07)
[2017-01-16] MEDS ORDERED: BACT800T5 PO (14:07)
[2017-01-16] MEDS ORDERED: NORC5TAB PO ×2 (14:07→15:53)
--- NOTE | 2017-01-16 14:10 | HHI.PR ---
Subjective Remarks he states he can feel his index finger tip again; pain is under control Objective Vital Signs Date Time Temp Pulse Resp B/P Pulse Ox O2 Delivery O2 Flow Rate FiO2 01/16/17 08:22 98.3 70 16 115/77 97 01/16/17 04:00 98.2 64 16 117/60 97 01/16/17 00:00 98.0 100 17 103/59 96 01/15/17 20:26 97 21 01/15/17 20:00 97.8 77 16 134/83 98 01/15/17 16:00 99.6 86 18 122/67 98 I/O 01/15/17 01/15/17 01/15/17 01/16/17 01/16/17 01/16/17 07:00 15:00 23:00 07:00 15:00 23:00 Intake Total 350 ml 1080 ml 360 ml Output Total 550 ml 1300 ml Balance 350 ml 530 ml -940 ml Intake Oral 350 ml 1080 ml 360 ml Output Urine Total 550 ml 1300 ml # Voids 4 3 # Bowel Movements 0 0 Result Diagram: 01/15/17 0800 01/15/17 0800 Procedures Status post I and D of the Right index finger. Other Results MRSA susceptibilities are back Objective Remarks left IF wound is clean, soft; tip is slightly dusky but viable with CR=2 seconds ; able to flex/extend; no hematoma, no bleeding Assessment and Plan Problem List: (1) High-pressure injection injury of finger of left hand Status: Acute Plan: ok to d/c from hand stand point on PO abx (written) f/u with Dr Raudel Raymond in 7-10 days wash and dry hands routinely Ajith Raymond III, MD Jan 16, 2017 14:09
--- NOTE | 2017-01-16 15:03 | HHI.DS ---
Discharge Summary Admission Date Jan 14, 2017 at 06:01 Discharge Date: Jan 16, 2017 Admitting Diagnosis pneumatic paint injury left index finger (1) High-pressure injection injury of finger of left hand ICD Code: S69.82XA Diagnosis: Principal Procedures Pneumatic latex paint injection injury to his Rip of his Right index finger, he developed edema erythema and came to ER for evaluation status post I and D performed by Hand database specialist. Brief History - From Admission This is a 31-year-old [id number] male patient with a past medical history which includes seizure disorder secondary to substance abuse last seizure 10 years ago also last substance abuse 10 years ago, MRSA infection of the right knee, scoliosis, colon polyps. Patient evaluated in postanesthesia care unit groggy from anesthesia therefore information gathered from patient as well as prior computerized charting. Patient presented to emergency department for evaluation of a pneumatic latex paint injection injury to the tip of the left index finger. This occurred sometime around 6:00 pm 01/13/2017. He states that he felt he had squeezed the pain out of the tip of this finger. He states that he washed the finger with peroxide. He woke up this morning sometime after 2 AM with severe pain in the left index finger along with swelling. Patient reports feeling well at this time denies pain, groggy post anesthesia. Patient denies shortness of breath chest pain nausea vomiting diarrhea constipation fevers or chills. CBC/BMP: 01/15/17 0800 01/15/17 0800 Significant Findings Laboratory Tests Test 01/14/17 01/15/17 03:05 08:00 White Blood Count 14.9 TH/MM3 11.8 TH/MM3 (4.0-11.0) (4.0-11.0) Red Blood Count 4.33 MIL/MM3 4.21 MIL/MM3 (4.50-5.90) (4.50-5.90) Neutrophils (%) (Auto) 76.4 % 73.2 % (16.0-70.0) (16.0-70.0) Monocytes (%) (Auto) 9.9 % (0.0-8.0) 9.6 % (0.0-8.0) Neutrophils # (Auto) 11.3 TH/MM3 8.6 TH/MM3 (1.8-7.7) (1.8-7.7) Monocytes # (Auto) 1.5 TH/MM3 1.1 TH/MM3 (0-0.9) (0-0.9) Blood Urea Nitrogen 21 MG/DL (7-18) Estimat Glomerular Filtration 70 ML/MIN (>89) 65 ML/MIN (>89) Rate Random Glucose 110 MG/DL 72 MG/DL (74-106) (74-106) Calcium Level 8.4 MG/DL (8.5-10.1) Imaging Last Impressions Hand X-Ray 01/14/17 0259 Signed Impressions: Service Date/Time: Saturday, January 14, 2017 03:20 - CONCLUSION: Radiopaque density in the volar tissues overlying the distal phalanx of the second ray characteristic of the reported history of a soft tissue pressure injection. Antwon Marshall MD PE at Discharge GENERAL: This is a well-nourished, well-developed patient, groggy post anesthesia in no apparent distress. SKIN: Left forearm and and digits postop dressing dry and intact HEAD: Atraumatic. Normocephalic. No temporal or scalp tenderness. EYES: Extraocular motions intact. No scleral icterus. No injection or drainage. CARDIOVASCULAR: Regular rate and rhythm without murmurs, gallops, or rubs. RESPIRATORY: Clear to auscultation. Breath sounds equal bilaterally. No wheezes , rales, or rhonchi. GASTROINTESTINAL: Abdomen soft, non-tender, nondistended. No hepato-splenomegaly , or palpable masses. No guarding. MUSCULOSKELETAL: Right hand dressed. NEUROLOGICAL: Awake and alert. Motor grossly within normal limits. Hospital Course This is a pleasant 31 y/o male with has Seizure disorder secondary to Substance abuse, 10 years ago, MRSA infection of the right knee, the patient had Pneumatic latex paint injection injury to his Rip of his Right index finger, he developed edema erythema and came to ER for evaluation status post I and D performed by Hand database specialist, Wound culture Staph Aureus, No MRSA so far. awaiting final by specialist for discharge. Assessment and Plan 1. High-pressure injection injury with latex paint to the left index finger Status post I&D left index finger 01/14/[address] Raymond as per Specialist started on Vancomycin for Staph aureus on wound care, No MRSA so far. Postoperative dressing dry and intact dressing changes per hand surgery Pain management with PO [place] and IV Morphine Tobacco abuse recommended to stop smoking DVT prophylaxis with SCDs Discussed with Patient and his in the room, The patient wants to go home. Okay to Discharge from Medicine standpoint. at this time discharged by hand chemistry specialist will continue antibiotics Doxycycline, Bactrim and pain medicine scripts performed by specialist. Pt Condition on Discharge: Good Discharge Disposition: Discharge Home Discharge Time: <= 30 minutes Discharge Instructions DIET: Follow Instructions for: As Tolerated, No Restrictions Activities you can perform: Regular-No Restrictions Donald Harkins MD Jan 16, 2017 15:03
[2017-01-17] MEDS ORDERED: PHARMACY ORDERED LAB XX ONE (12:45)
== END 2017-01-16 17:12 | disposition home or self-care (01) | DRG 906 ==
LOC: NEPB 02:48 → NEDA 06:01 → N06B 07:36
PROVIDERS: ADMIT Internal Medicine; ATTEND Internal Medicine
PROC: 0JBK0ZZ Excision of Left Hand Subcutaneous Tissue and Fascia, Open Approach (ICD-10-PCS; principal; 2017-01-14 06:12)
DX: T70.4XXA Effects of high-pressure fluids, initial encounter (principal); M41.9 Scoliosis, unspecified; S69.82XA Other specified injuries of left wrist, hand and finger(s), initial encounter; G40.909 Epilepsy, unspecified, not intractable, without status epilepticus; W31.89XA Contact with other specified machinery, initial encounter; Z86.010 Personal history of colon polyps; F17.210 Nicotine dependence, cigarettes, uncomplicated; M19.042 Primary osteoarthritis, left hand; M19.041 Primary osteoarthritis, right hand; Z86.14 Personal history of Methicillin resistant Staphylococcus aureus infection; K21.9 Gastro-esophageal reflux disease without esophagitis; B95.62 Methicillin resistant Staphylococcus aureus infection as the cause of diseases classified elsewhere
CPT/HCPCS: 73130; 80048; 80053; 85025; 85610; 85730; 86403; 87015; 87070; 87077; 87102; 87116; 87186; 87205; 87206; 90471; 90714; 96365; 96375; J0690; J2270; J2370; J2405; J3010; J3370; J7050; J7120